=== PATIENT | female | born 1965 | race African-American/Black ===

== ENCOUNTER 2017-04-22 07:13 | Inpatient (IN) ==
[~2017-04-22 07:13] MED LIST: BENZONATATE 100 MG CAPSULE PO PRN; DEXTROSE 50% 25 GM/50 ML VIAL IV PRN; GLUCAGON 1 MG VIAL IM PRN
[2017-04-22 11:11] LABS: Basophils # 0.1 10*3/uL (0.0-0.2); Basophils % 0.8 % (0.0-0.8); Eosinophils # 0.3 10*3/uL (0.0-0.87); Eosinophils % 3.8 % (0.00-10.9); Hematocrit 37.4 VOL% (35.7-47.0); Hemoglobin 11.5 GM/DL (12.0-16.0); Immature Granulocytes % 0.4 %; Immature Granulocytes Absolute 0.03 #; Lymphocytes # 1.9 10*3/uL (1.4-4.0); Lymphocytes % 25.3 % (21.3-54.2); Mean Corpuscular HGB Conc 30.7 GM/DL (32-36); Mean Corpuscular Hemoglobin 24 PG (27-34); Mean Corpuscular Volume 77.1 FL (87-102); Mean Platelet Volume 9.7 FL (9.6-12.0); Monocytes # 0.7 10*3/uL (0.11-0.8); Monocytes % 9.1 % (1.7-12.7); Neutrophils # 4.5 10*3/uL (1.4-7.4); Neutrophils % 60.6 % (38.7-73.9); Platelet Count 360 T/CUMM (130-400); Red Blood Count 4.85 MC/CUMM (3.8-5.5); Red Cell Distribution Width 16.2 % (9.3-17.3); White Blood Count 7.4 T/CUMM (4-12)
[2017-04-22] MEDS: SODIUM CHLORIDE 0.9% 1,000 ML IV SCH (11:47)
[2017-04-22] MEDS: CHLORHEXIDINE 0.12% ORAL RINSE 60 ML BOTTLE SWISH/SPIT SCH ×2 (11:47→21:26)
[2017-04-22 11:51] LABS: Albumin 3.1 G/DL (3.4-5.0); Bilirubin,Total 0.4 MG/DL (0.2-1.0); Calcium 9.2 MG/DL (8.5-10.1); Osmolality,Calculated 275.5 MOS/KG (273-304); Potassium 4.8 MMOL/L (3.5-5.1)
[2017-04-22 12:04] LABS: ABG HCO3 28.3 MMOL/L (20-26); ABG Oxygen Saturation 97.1 % (95-100); ABG PCO2 41.7 MM HG (35-48); ABG PO2 96.9 MM HG (80-95); ABG TCO2 29.6 MMOL/L (23-27)
[2017-04-22] MEDS: CHLORHEXIDINE 4% SOLN 118 ML BOTTLE TOP SCH ×2 (16:11→22:53)
[2017-04-23] MEDS ORDERED: CEFUROXIME INJ 1,500 MG in SYRINGE 1 EACH IV ONE (05:00)
[2017-04-23] MEDS ORDERED: PAPAVERINE 60 MG/2 ML VIAL ONE (05:30)
[2017-04-23] MEDS ORDERED: VANCOMYCIN 1,000 MG VIAL ONE (05:31)
[2017-04-23] MEDS ORDERED: SUFentanil 250 MCG/5 ML AMP ONE (05:44)
[2017-04-23] MEDS ORDERED: MIDAZOLAM 10 MG/2 ML VIAL ONE (05:44)
[2017-04-23] MEDS ORDERED: NITROGLYCERIN DRIP 50 MG/250 ML BOTTLE IV ONE (05:45)
[2017-04-23] MEDS ORDERED: AMINOCAPROIC ACID 5,000 MG/20 ML VIAL IV ONE (05:45)
[2017-04-23] MEDS ORDERED: HEPARIN/NACL 0.9% 2 UNITS/ML 500 ML IV ONE (05:45)
[2017-04-23] MEDS ORDERED: FAMOTIDINE 20 MG TABLET PO ONE (06:00)
[2017-04-23] MEDS ORDERED: DIAZEPAM 5 MG TABLET PO ONE (06:00)
[2017-04-23] MEDS ORDERED: DEXTROSE 50% 25 GM/50 ML VIAL IV PRN ×2 (06:10→12:22)
[2017-04-23] MEDS ORDERED: GLUCAGON 1 MG VIAL IM PRN (06:10)
[2017-04-23] MEDS: INSULIN REGULAR 100 UNIT/ML SUBCUT SCH ×3 (06:16→15:02)
[2017-04-23] MEDS ORDERED: PHENYLEPHRINE DRIP 40 MG/250 ML PREMIX IV ONE (07:09)
[2017-04-23] MEDS ORDERED: CALCIUM CHLORIDE 1,000 MG/10 ML SYRINGE IV ONE (07:09)
[2017-04-23] MEDS ORDERED: NITROPRUSSIDE 50 MG/2 ML VIAL ONE (07:09)
[2017-04-23] MEDS ORDERED: POTASSIUM CHLORIDE RIDER 100 ML IV ONE (07:09)
[2017-04-23] MEDS ORDERED: SODIUM BICARBONATE 50 MEQ/50 ML SYRINGE IV ONE ×2 (07:11→11:31)
[2017-04-23 07:55] LABS: ABG HCO3 24.5 MMOL/L (20-26); ABG PCO2 37.5 MM HG (35-48); ABG PH 7.419 (7.35-7.45); ABG TCO2 22.1 MMOL/L (23-27); Glucose Heart Surgery 358 MG/DL (74-106); Hematocrit Heart Surgery 30.8 PERCENT (37-47); Ionized Calcium Arterial 1.17 MMOL/L (1.21-1.46); PCO2 Patient Temp Arterial 37.5 MMHG; PH Patient Temp Arterial 7.419; Patient Temperature 37 CELCIUS; Potassium Heart/CVR 3.9 MMOL/L (3.5-5.1); Sodium Heart/CVR 138 MMOL/L (135-145)
[2017-04-23 08:00] LABS: Apearance,Urine CLEAR (Clear); Bilirubin,Urine Negative (Negative); Blood, Urine Small mg/dL (Negative); Glucose,Urine (UA) >=500 mg/dL (Negative); Ketones,Urine Negative (Negative); Nitrite,Urine Negative (Negative); Protein,Urine 30 MG/DL; RBC,Urine 5 /HPF (0-4); Squamous Epithelial Cell,Urine Occasional /HPF (0-10); Urine Color Straw (Yellow); Urine Specific Gravity 1.014 (1.001-1.035); Urine Urobilinogen < 2.0 EU/DL (0.2-1.0); WBC,Urine <1 /HPF (0-6)
[2017-04-23] MEDS ORDERED: INSULIN REGULAR DRIP 100 ML IV ONE (08:52)
[2017-04-23] MEDS ORDERED: LOSARTAN 50 MG TABLET PO SCH (09:00)
[2017-04-23] MEDS ORDERED: PANTOPRAZOLE 40 MG TABLET PO SCH (09:00)
[2017-04-23] MEDS ORDERED: ATORVASTATIN 40 MG TABLET PO SCH (09:00)
[2017-04-23] MEDS ORDERED: METOCLOPRAMIDE 10 MG TABLET PO SCH (09:00)
[2017-04-23] MEDS ORDERED: ASPIRIN EC 81 MG TABLET PO SCH (09:00)
[2017-04-23] MEDS ORDERED: POTASSIUM CHLORIDE 20 MEQ TABLET PO SCH (09:00)
[2017-04-23] MEDS: CHLORHEXIDINE 0.12% ORAL RINSE 60 ML BOTTLE SWISH/SPIT SCH ×2 (09:10→20:24)
[2017-04-23] MEDS: CHLORHEXIDINE 4% SOLN 118 ML BOTTLE TOP SCH (09:10)
[2017-04-23 10:04] LABS: Hemoglobin Heart Surgery 7.5 G/DL (12.0-16.0); PCO2 Patient Temp Venous 29.5 MM HG; PH Patient Temp Venous 7.552; PO2 Patient Temp Venous 31.9 MM HG; Potassium Heart/CVR 3.8 MMOL/L (3.5-5.1); VBG Base Excess 2.9 MEQ/L (0-4); VBG HCO3 25.8 MEQ/L (24-28); VBG Oxygen Saturation 77.8 %; VBG PCO2 32.2 MMHG (41-51); VBG PH 7.521; VBG PO2 36.7 MMHG (17-40)
[2017-04-23 10:31] LABS: Hemoglobin Heart Surgery 7.9 G/DL (12.0-16.0); PCO2 Patient Temp Venous 27.5 MM HG; PH Patient Temp Venous 7.564; PO2 Patient Temp Venous 37.9 MM HG; Potassium Heart/CVR 3.2 MMOL/L (3.5-5.1); VBG Base Excess 2.1 MEQ/L (0-4); VBG HCO3 25.2 MEQ/L (24-28); VBG Oxygen Saturation 87.3 %; VBG PCO2 32.8 MMHG (41-51); VBG PH 7.503; VBG PO2 50.2 MMHG (17-40)
[2017-04-23 10:57] LABS: PCO2 Patient Temp Venous 32.3 MM HG; PH Patient Temp Venous 7.519; PO2 Patient Temp Venous 36.2 MM HG; Potassium Heart/CVR 3.9 MMOL/L (3.5-5.1); VBG Base Excess 2.8 MEQ/L (0-4); VBG HCO3 25.7 MEQ/L (24-28); VBG Oxygen Saturation 77.6 %; VBG PCO2 32.3 MMHG (41-51); VBG PH 7.519; VBG PO2 36.2 MMHG (17-40)
[2017-04-23 11:20] LABS: ABG Base Excess 1.4 MMOL/L (-2.5-2.5); ABG HCO3 24.5 MMOL/L (20-26); ABG Oxygen Saturation 98.3 % (95-100); ABG PCO2 33.2 MM HG (35-48); ABG PH 7.486 (7.35-7.45); ABG PO2 144.2 MM HG (80-95); ABG TCO2 25.5 MMOL/L (23-27); Glucose Heart Surgery 142 MG/DL (74-106); Hemoglobin Heart Surgery 10.3 G/DL (12.0-16.0); Ionized Calcium Arterial 1.21 MMOL/L (1.21-1.46); PCO2 Patient Temp Arterial 33.2 MMHG; PH Patient Temp Arterial 7.486; PO2 Patient Temp Arterial 144.2 MM HG; Patient Temperature 37 CELCIUS; Potassium Heart/CVR 3.2 MMOL/L (3.5-5.1); Sodium Heart/CVR 138 MMOL/L (135-145)
[2017-04-23] MEDS ORDERED: ALBUMIN 25% 25 GM/100 ML VIAL IV ONE (11:31)
[2017-04-23] MEDS ORDERED: HEPARIN 10,000 UNIT/10 ML VIAL ONE (11:31)
[2017-04-23] MEDS ORDERED: MANNITOL 12.5 GM/50 ML VIAL IV ONE (11:31)
[2017-04-23] MEDS ORDERED: MAGNESIUM SULFATE 1 GM/2 ML VIAL ONE (11:31)
[2017-04-23] MEDS ORDERED: DEXTROSE 5% KCL 20 MEQ 20 MEQ/1,000 ML BAG IV ONE (11:31)
[2017-04-23] MEDS ORDERED: PROTAMINE SULFATE 250 MG/25 ML VIAL IV ONE (11:31)
[2017-04-23] MEDS ORDERED: methylPREDNISolone SOD SUC 1,000 MG/8 ML VIAL ONE (11:31)
[2017-04-23] MEDS ORDERED: POTASSIUM CHLORIDE 20 MEQ/10 ML VIAL ONE (11:32)
[2017-04-23] MEDS ORDERED: FUROSEMIDE 20 MG/2 ML VIAL ONE (11:32)
[2017-04-23] MEDS: SODIUM CHLORIDE 0.45% 1,000 ML IV SCH ×2 (12:10)
[2017-04-23] MEDS ORDERED: CALCIUM CHLORIDE 1,000 MG/10 ML VIAL IV ONE (12:18)
[2017-04-23] MEDS ORDERED: MINERAL OIL/PETROLATUM OPH OINT 3.5 GM TUBE ONE (12:18)
[2017-04-23] MEDS ORDERED: DEXAMETHASONE 10 MG/1 ML VIAL ONE (12:18)
[2017-04-23] MEDS ORDERED: ONDANSETRON 4 MG/2 ML VIAL ONE (12:19)
[2017-04-23] MEDS ORDERED: KETOROLAC 30 MG/1 ML VIAL ONE (12:19)
[2017-04-23] MEDS ORDERED: FAMOTIDINE 20 MG/2 ML VIAL IV ONE (12:19)
[2017-04-23] MEDS ORDERED: ESMOLOL 100 MG/10 ML VIAL IV ONE (12:19)
[2017-04-23] MEDS ORDERED: ePHEDrine 50 MG/ML AMP ONE (12:20)
[2017-04-23] MEDS ORDERED: SEVOFLURANE 1 UNIT/15 MINUTE INH ONE (12:20)
[2017-04-23] MEDS ORDERED: SODIUM CHLORIDE 0.9% 500 ML IV ONE (12:21)
[2017-04-23] MEDS ORDERED: PHENYLEPHRINE 50 MG/5 ML VIAL ONE (12:21)
[2017-04-23] MEDS ORDERED: ROCURONIUM 100 MG/10 ML VIAL IV ONE (12:21)
[2017-04-23] MEDS ORDERED: LACTATED RINGERS 1,000 ML IV ONE (12:21)
[2017-04-23] MEDS ORDERED: SODIUM CHLORIDE 0.9% 2,000 ML IV ONE (12:21)
[2017-04-23] MEDS ORDERED: MORPHINE 2 MG/1 ML SYRINGE IV PRN (12:22)
[2017-04-23] MEDS ORDERED: MIDAZOLAM 10 MG/2 ML VIAL IV PRN (12:22)
[2017-04-23] MEDS ORDERED: INSULIN REGULAR 100 UNIT/ML IV PRN (12:22)
[2017-04-23] MEDS ORDERED: VECURONIUM 10 MG VIAL IV PRN ×2 (12:22)
[2017-04-23] MEDS ORDERED: MORPHINE 10 MG/1 ML VIAL IV PRN (12:22)
[2017-04-23] MEDS ORDERED: INSULIN REGULAR 100 UNIT/ML IV ONE (12:22)
[2017-04-23] MEDS ORDERED: LACTATED RINGERS 250 ML IV PRN (12:22)
[2017-04-23] MEDS ORDERED: MAGNESIUM SULF RIDER 4 GM in PREMIX 1 EACH IV PRN (12:22)
[2017-04-23] MEDS ORDERED: NITROPRUSSIDE 100 MG in DEXTROSE 5% 250 ML IV PRN (12:22)
[2017-04-23] MEDS ORDERED: MIDAZOLAM 2 MG/2 ML VIAL IV PRN (12:22)
[2017-04-23] MEDS ORDERED: CALCIUM CHLORIDE 1,000 MG/10 ML SYRINGE IV PRN (12:22)
[2017-04-23] MEDS ORDERED: MAGNESIUM SULF RIDER 2 GM in PREMIX 1 EACH IV PRN (12:22)
[2017-04-23] MEDS ORDERED: ACETAMINOPHEN 650 MG SUPP RECTAL PRN (12:22)
[2017-04-23 12:27] LABS: ABG Base Excess 2.7 MMOL/L (-2.5-2.5); ABG HCO3 24.3 MMOL/L (20-26); ABG Oxygen Saturation 98.4 % (95-100); ABG PCO2 27.5 MM HG (35-48); ABG PH 7.564 (7.35-7.45); ABG PO2 160.7 MM HG (80-95); ABG TCO2 25.1 MMOL/L (23-27); Glucose Heart Surgery 120 MG/DL (74-106); Hemoglobin Heart Surgery 10.3 G/DL (12.0-16.0); Potassium Heart/CVR 3.1 MMOL/L (3.5-5.1)
[2017-04-23] MEDS: LACTATED RINGERS 1,000 ML IV PRN ×3 (12:30→17:05)
[2017-04-23] MEDS: KETOROLAC 30 MG/1 ML VIAL IV SCH ×3 (12:30→23:53)
[2017-04-23 12:32] LABS: Basophils # 0.1 10*3/uL (0.0-0.2); Basophils % 0.4 % (0.0-0.8); Eosinophils # 0.1 10*3/uL (0.0-0.87); Eosinophils % 0.9 % (0.00-10.9); Hematocrit 31.7 VOL% (35.7-47.0); Hemoglobin 10.2 GM/DL (12.0-16.0); Immature Granulocytes % 0.8 %; Lymphocytes # 1.2 10*3/uL (1.4-4.0); Lymphocytes % 9.6 % (21.3-54.2); Mean Corpuscular HGB Conc 32.2 GM/DL (32-36); Mean Corpuscular Hemoglobin 24 PG (27-34); Mean Corpuscular Volume 74.6 FL (87-102); Mean Platelet Volume 9.7 FL (9.6-12.0); Monocytes # 0.6 10*3/uL (0.11-0.8); Monocytes % 4.8 % (1.7-12.7); Neutrophils % 83.5 % (38.7-73.9); Platelet Count 325 T/CUMM (130-400); Red Blood Count 4.25 MC/CUMM (3.8-5.5); Red Cell Distribution Width 15.8 % (9.3-17.3)
[2017-04-23 12:40] LABS: INR 1.2; PT Patient Result 12.1 SECS; Partial Thromboplastin Time 29.4 SECS (0-40)
[2017-04-23 13:09] LABS: Bilirubin,Total 0.7 MG/DL (0.2-1.0); Magnesium 2.3 MG/DL (1.8-2.4); Osmolality,Calculated 283.3 MOS/KG (273-304); Potassium 3.3 MMOL/L (3.5-5.1); Total Protein 6.8 G/DL (6.4-8.3)
[2017-04-23] MEDS: POTASSIUM CHLORIDE RIDER 20 MEQ in PREMIX 1 EACH IV PRN ×4 (13:15→19:20)
[2017-04-23 13:25] LABS: CKMB % 6.1 %
[2017-04-23 13:26] LABS: Troponin I Only 2.8 NG/ML (0.00-0.045)
[2017-04-23] MEDS: NON-FORMULARY MEDICATION (Insulin Degludec [Tresiba Flextouch U-100] 50 UNIT) SQ SCH (15:02)
[2017-04-23] MEDS: SODIUM CHLORIDE 0.9% 1,000 ML IV SCH (15:03)
[2017-04-23 15:16] LABS: ABG HCO3 26.2 MMOL/L (20-26); ABG Oxygen Saturation 98.1 % (95-100); ABG PCO2 33.9 MM HG (35-48); ABG PH 7.478 (7.35-7.45); ABG TCO2 22.8 MMOL/L (23-27); Glucose Heart Surgery 90 MG/DL (74-106); Hematocrit Heart Surgery 31.2 PERCENT (37-47); Hemoglobin Heart Surgery 10.1 G/DL (12.0-16.0); Potassium Heart/CVR 3.5 MMOL/L (3.5-5.1)
[2017-04-23] MEDS: ALBUMIN 5% 12.5 GM in PREMIX 1 EACH IV PRN ×2 (15:45→16:01)
[2017-04-23] MEDS: POTASSIUM CHLORIDE RIDER 10 MEQ in PREMIX 1 EACH IV PRN ×3 (16:00→23:53)
[2017-04-23 17:56] LABS: ABG Base Excess 1.4 MMOL/L (-2.5-2.5); ABG HCO3 25.7 MMOL/L (20-26); ABG Oxygen Saturation 98.6 % (95-100); ABG PCO2 37.8 MM HG (35-48); ABG PH 7.438 (7.35-7.45); ABG TCO2 23.7 MMOL/L (23-27); Glucose Heart Surgery 100 MG/DL (74-106); Hematocrit Heart Surgery 26.1 PERCENT (37-47); Hemoglobin Heart Surgery 8.4 G/DL (12.0-16.0); Potassium Heart/CVR 3.9 MMOL/L (3.5-5.1)
[2017-04-23 20:21] LABS: ABG Base Excess -1.3 MMOL/L (-2.5-2.5); ABG HCO3 23.4 MMOL/L (20-26); ABG Oxygen Saturation 98.6 % (95-100); ABG PCO2 42.4 MM HG (35-48); ABG PH 7.363 (7.35-7.45); ABG TCO2 22.1 MMOL/L (23-27); Glucose Heart Surgery 154 MG/DL (74-106); Hematocrit Heart Surgery 29.5 PERCENT (37-47); Hemoglobin Heart Surgery 9.5 G/DL (12.0-16.0); Potassium Heart/CVR 4.5 MMOL/L (3.5-5.1)
[2017-04-23] MEDS: CEFUROXIME INJ 1,500 MG in SYRINGE 1 EACH IV SCH (20:23)
[2017-04-23 21:04] LABS: CKMB % 6.9 %
[2017-04-23 21:10] LABS: Troponin I Only 21.7 NG/ML (0.00-0.045)
[2017-04-23] MEDS: ONDANSETRON 4 MG/2 ML VIAL IV PRN (22:47)
[2017-04-23] MEDS ORDERED: FUROSEMIDE 40 MG/4 ML VIAL IV ONE (23:18)
[2017-04-23] MEDS: PHENYLEPHRINE DRIP 40 MG/250 ML PREMIX IV PRN (23:24)
[2017-04-23] MEDS: INSULIN REGULAR DRIP 100 ML IV SCH (23:37)
[2017-04-23 23:41] LABS: ABG Base Excess -5.3 MMOL/L (-2.5-2.5); ABG Oxygen Saturation 97.2 % (95-100); ABG PCO2 48.5 MM HG (35-48); ABG PH 7.263 (7.35-7.45); ABG TCO2 20.2 MMOL/L (23-27); Glucose Heart Surgery 253 MG/DL (74-106); Hematocrit Heart Surgery 31.6 PERCENT (37-47); Hemoglobin Heart Surgery 10.2 G/DL (12.0-16.0); Potassium Heart/CVR 4.5 MMOL/L (3.5-5.1)
[2017-04-24 00:48] LABS: ABG Base Excess -4.6 MMOL/L (-2.5-2.5); ABG HCO3 20.6 MMOL/L (20-26); ABG Oxygen Saturation 97.8 % (95-100); ABG PCO2 50.1 MM HG (35-48); ABG PH 7.264 (7.35-7.45); Glucose Heart Surgery 210 MG/DL (74-106); Hematocrit Heart Surgery 31.4 PERCENT (37-47); Hemoglobin Heart Surgery 10.2 G/DL (12.0-16.0); Potassium Heart/CVR 4.3 MMOL/L (3.5-5.1)
[2017-04-24] MEDS: NON-FORMULARY MEDICATION (Insulin Degludec [Tresiba Flextouch U-100] 50 UNIT) SQ SCH (03:20)
[2017-04-24 03:41] LABS: Basophils % 0.1 % (0.0-0.8); Hematocrit 31.5 VOL% (35.7-47.0); Hemoglobin 10.1 GM/DL (12.0-16.0); Immature Granulocytes % 0.5 %; Lymphocytes % 3.1 % (21.3-54.2); Mean Corpuscular HGB Conc 32.1 GM/DL (32-36); Mean Corpuscular Hemoglobin 25 PG (27-34); Mean Corpuscular Volume 77.6 FL (87-102); Mean Platelet Volume 10.7 FL (9.6-12.0); Monocytes % 7.8 % (1.7-12.7); Neutrophils % 88.5 % (38.7-73.9); Platelet Count 256 T/CUMM (130-400); Red Blood Count 4.06 MC/CUMM (3.8-5.5); Red Cell Distribution Width 16.1 % (9.3-17.3); White Blood Count 19.5 T/CUMM (4-12)
[2017-04-24 03:42] LABS: Lymphocytes # 0.6 10*3/uL (1.4-4.0); Monocytes # 1.5 10*3/uL (0.11-0.8); Neutrophils # 17.3 10*3/uL (1.4-7.4)
[2017-04-24 03:45] LABS: ABG Base Excess -0.5 MMOL/L (-2.5-2.5); ABG Oxygen Saturation 98.7 % (95-100); ABG PCO2 45.2 MM HG (35-48); ABG PH 7.354 (7.35-7.45); ABG TCO2 22.9 MMOL/L (23-27); Glucose Heart Surgery 93 MG/DL (74-106); Hematocrit Heart Surgery 31.7 PERCENT (37-47); Hemoglobin Heart Surgery 10.2 G/DL (12.0-16.0); Potassium Heart/CVR 3.8 MMOL/L (3.5-5.1)
[2017-04-24] MEDS: POTASSIUM CHLORIDE RIDER 20 MEQ in PREMIX 1 EACH IV PRN ×3 (03:50→23:39)
[2017-04-24 04:15] LABS: Alanine Aminotransferase 34 U/L (13-56); Albumin 3.7 G/DL (3.4-5.0); Alkaline Phosphatase 56 U/L (45-117); Aspartate Amino Transferase 207 U/L (0-37); Bilirubin,Direct < 0.100 MG/DL (0.0-0.20); Blood Urea Nitrogen 19 MG/DL (7-18); Calcium 8.5 MG/DL (8.5-10.1); Glucose 82 MG/DL (74-106); Osmolality,Calculated 286.8 MOS/KG (273-304); Potassium 4.6 MMOL/L (3.5-5.1); Sodium 144 MMOL/L (136-145); Total Protein 7.2 G/DL (6.4-8.3)
[2017-04-24 04:19] LABS: Lymphocytes 7 % (20-55); Segmented Neutrophils 87 % (50-85); Total Cells Counted 100
[2017-04-24 04:20] LABS: Platelet Estimate Normal
[2017-04-24] MEDS: POTASSIUM CHLORIDE RIDER 10 MEQ in PREMIX 1 EACH IV PRN (04:23)
[2017-04-24 04:27] LABS: CKMB % 7.5 %
[2017-04-24] MEDS: ONDANSETRON 4 MG/2 ML VIAL IV PRN (04:32)
[2017-04-24 04:46] LABS: Troponin I Only 34.9 NG/ML (0.00-0.045)
[2017-04-24] MEDS: LACTATED RINGERS 1,000 ML IV PRN (05:20)
[2017-04-24 06:24] LABS: ABG Base Excess -3.3 MMOL/L (-2.5-2.5); ABG HCO3 21.6 MMOL/L (20-26); ABG Oxygen Saturation 98.2 % (95-100); ABG PH 7.334 (7.35-7.45); ABG TCO2 20.5 MMOL/L (23-27); Glucose Heart Surgery 128 MG/DL (74-106); Hematocrit Heart Surgery 30.7 PERCENT (37-47); Hemoglobin Heart Surgery 9.9 G/DL (12.0-16.0); Potassium Heart/CVR 4.9 MMOL/L (3.5-5.1)
[2017-04-24] MEDS: CEFUROXIME INJ 1,500 MG in SYRINGE 1 EACH IV SCH ×2 (07:47→20:43)
[2017-04-24 08:15] LABS: ABG Base Excess -4.9 MMOL/L (-2.5-2.5); ABG HCO3 20.4 MMOL/L (20-26); ABG PCO2 48.5 MM HG (35-48); ABG PH 7.269 (7.35-7.45); ABG TCO2 20.5 MMOL/L (23-27); Glucose Heart Surgery 187 MG/DL (74-106); Hematocrit Heart Surgery 30.7 PERCENT (37-47); Hemoglobin Heart Surgery 9.9 G/DL (12.0-16.0); Potassium Heart/CVR 4.9 MMOL/L (3.5-5.1)
[2017-04-24] MEDS ORDERED: FUROSEMIDE 40 MG/4 ML VIAL IV ONE ×3 (08:38→16:46)
[2017-04-24] MEDS: CHLORHEXIDINE 0.12% ORAL RINSE 60 ML BOTTLE SWISH/SPIT SCH ×2 (09:09→20:43)
[2017-04-24] MEDS: ALBUMIN 25% 12.5 GM in PREMIX 1 EACH IV PRN ×2 (10:38→12:11)
[2017-04-24] MEDS: SODIUM CHLORIDE 0.9% 1,000 ML IV SCH (10:42)
[2017-04-24] MEDS ORDERED: AMIODARONE INJ 150 MG in DEXTROSE 5% 100 ML IV ONE (11:14)
[2017-04-24] MEDS ORDERED: AMIODARONE 450 MG/9 ML VIAL IV ONE (11:21)
[2017-04-24] MEDS ORDERED: AMIODARONE 150 MG/3 ML VIAL ONE (11:22)
[2017-04-24] MEDS ORDERED: AMIODARONE INJ 450 MG in DEXTROSE 5% 241 ML IV SCH (11:30)
[2017-04-24] MEDS: PROPOFOL 1,000 MG/100 ML BOTTLE IV SCH ×3 (11:31→22:16)
[2017-04-24 13:04] LABS: ABG Base Excess -4.3 MMOL/L (-2.5-2.5); ABG HCO3 20.8 MMOL/L (20-26); ABG Oxygen Saturation 96.1 % (95-100); ABG PCO2 43.8 MM HG (35-48); ABG PH 7.307 (7.35-7.45); ABG TCO2 20.1 MMOL/L (23-27); Glucose Heart Surgery 131 MG/DL (74-106); Hematocrit Heart Surgery 30.5 PERCENT (37-47); Hemoglobin Heart Surgery 9.9 G/DL (12.0-16.0); Potassium Heart/CVR 4.4 MMOL/L (3.5-5.1)
[2017-04-24] MEDS: SODIUM CHLORIDE 0.45% 1,000 ML IV SCH ×2 (13:23→13:24)
[2017-04-24 13:56] LABS: CKMB % 6.7 %
[2017-04-24 13:58] LABS: Troponin I Only 45.6 NG/ML (0.00-0.045)
[2017-04-24 14:57] LABS: ABG Base Excess -4.1 MMOL/L (-2.5-2.5); ABG HCO3 21.7 MMOL/L (20-26); ABG Oxygen Saturation 97.3 % (95-100); ABG PCO2 42.7 MM HG (35-48); ABG PH 7.324 (7.35-7.45); ABG PO2 112.6 MM HG (80-95); Glucose Heart Surgery 90 MG/DL (74-106); Hemoglobin Heart Surgery 10.1 G/DL (12.0-16.0); Potassium Heart/CVR 4.5 MMOL/L (3.5-5.1)
[2017-04-24] MEDS ORDERED: DOBUTamine 500 MG/250 ML PREMIX IV SCH (16:00)
[2017-04-24] MEDS: INSULIN REGULAR DRIP 100 ML IV SCH ×2 (16:04→20:22)
[2017-04-24 16:17] LABS: ABG Base Excess -4.9 MMOL/L (-2.5-2.5); ABG HCO3 20.9 MMOL/L (20-26); ABG Oxygen Saturation 95.1 % (95-100); ABG PCO2 41.6 MM HG (35-48); ABG PH 7.319 (7.35-7.45); ABG PO2 85.3 MM HG (80-95); ABG TCO2 22.2 MMOL/L (23-27); Glucose Heart Surgery 129 MG/DL (74-106); Potassium Heart/CVR 4.6 MMOL/L (3.5-5.1)
[2017-04-24] MEDS ORDERED: SODIUM BICARBONATE 50 MEQ/50 ML SYRINGE IV ONE (16:45)
[2017-04-24 16:54] LABS: VBG HCO3 23.5 MEQ/L (24-28); VBG Oxygen Saturation 37.6 %; VBG PCO2 49.5 MMHG (41-51); VBG PH 7.295; VBG PO2 22.5 MMHG (17-40)
[2017-04-24 16:55] LABS: VBG Inspired Oxygen 37.6 PERCENT (0-100)
[2017-04-24] MEDS: INSULIN REGULAR 100 UNIT/ML SUBCUT SCH ×2 (16:59→20:05)
[2017-04-24] MEDS ORDERED: MIDAZOLAM 2 MG/2 ML VIAL IV ONE (17:00)
[2017-04-24] MEDS ORDERED: SUCCINYLCHOLINE 200 MG/10 ML VIAL ONE (17:21)
[2017-04-24] MEDS ORDERED: NITROGLYCERIN DRIP 50 MG/250 ML BOTTLE IV ONE (17:22)
[2017-04-24] MEDS ORDERED: methylPREDNISolone SOD SUC 125 MG/2 ML VIAL ONE (17:44)
[2017-04-24] MEDS ORDERED: methylPREDNISolone SOD SUC 125 MG/2 ML VIAL IV ONE (17:45)
[2017-04-24 18:06] LABS: ABG Base Excess -5.2 MMOL/L (-2.5-2.5); ABG HCO3 20.1 MMOL/L (20-26); ABG Oxygen Saturation 98.7 % (95-100); ABG PCO2 41.3 MM HG (35-48); ABG PH 7.309 (7.35-7.45); ABG TCO2 19.2 MMOL/L (23-27); Glucose Heart Surgery 204 MG/DL (74-106); Hemoglobin Heart Surgery 9.4 G/DL (12.0-16.0); Potassium Heart/CVR 4.2 MMOL/L (3.5-5.1)
[2017-04-24] MEDS: FUROSEMIDE INJ 100 MG in SODIUM CHLORIDE 0.9% 90 ML IV SCH ×2 (18:27→22:13)
[2017-04-24] MEDS: AMIODARONE INJ 450 MG in DEXTROSE 5% 241 ML IV SCH (19:51)
[2017-04-24] MEDS: methylPREDNISolone SOD SUC 40 MG/1 ML VIAL IV SCH (19:54)
[2017-04-24] MEDS ORDERED: NITROGLYCERIN DRIP 50 MG/250 ML BOTTLE IV SCH (20:00)
[2017-04-24] MEDS: METOPROLOL TARTRATE 25 MG TABLET PO SCH (21:06)
[2017-04-24] MEDS ORDERED: INSULIN REGULAR 100 UNIT/ML IV PRN (22:03)
[2017-04-24 22:45] LABS: ABG Base Excess -1.9 MMOL/L (-2.5-2.5); ABG HCO3 21.9 MMOL/L (20-26); ABG Oxygen Saturation 98.7 % (95-100); ABG PCO2 33.5 MM HG (35-48); ABG PH 7.433 (7.35-7.45); ABG PO2 195.2 MM HG (80-95); ABG TCO2 22.9 MMOL/L (23-27); Glucose Heart Surgery 205 MG/DL (74-106); Hemoglobin Heart Surgery 9.4 G/DL (12.0-16.0); Potassium Heart/CVR 3.2 MMOL/L (3.5-5.1)
[2017-04-25] MEDS: LACTATED RINGERS 1,000 ML IV PRN (00:24)
[2017-04-25] MEDS ORDERED: HEPARIN/NACL 0.9% 2 UNITS/ML 500 ML IV ONE (02:38)
[2017-04-25] MEDS: methylPREDNISolone SOD SUC 40 MG/1 ML VIAL IV SCH ×3 (02:48→18:35)
[2017-04-25 02:55] LABS: Basophils % 0.1 % (0.0-0.8); Hematocrit 27.2 VOL% (35.7-47.0); Hemoglobin 8.7 GM/DL (12.0-16.0); Immature Granulocytes % 0.7 %; Immature Granulocytes Absolute 0.14 #; Lymphocytes # 0.8 10*3/uL (1.4-4.0); Lymphocytes % 3.7 % (21.3-54.2); Mean Corpuscular Hemoglobin 25 PG (27-34); Mean Corpuscular Volume 77.3 FL (87-102); Mean Platelet Volume 9.9 FL (9.6-12.0); Monocytes # 1.4 10*3/uL (0.11-0.8); Neutrophils # 18.2 10*3/uL (1.4-7.4); Neutrophils % 88.5 % (38.7-73.9); Platelet Count 225 T/CUMM (130-400); Red Blood Count 3.52 MC/CUMM (3.8-5.5); Red Cell Distribution Width 16.5 % (9.3-17.3); White Blood Count 20.6 T/CUMM (4-12)
[2017-04-25 03:03] LABS: ABG Base Excess 0.9 MMOL/L (-2.5-2.5); ABG HCO3 25.3 MMOL/L (20-26); ABG Oxygen Saturation 99.3 % (95-100); ABG PCO2 33.8 MM HG (35-48); ABG PH 7.466 (7.35-7.45); ABG TCO2 22.4 MMOL/L (23-27); Glucose Heart Surgery 77 MG/DL (74-106); Hematocrit Heart Surgery 27.7 PERCENT (37-47); Hemoglobin Heart Surgery 8.9 G/DL (12.0-16.0); Potassium Heart/CVR 3.6 MMOL/L (3.5-5.1)
[2017-04-25 03:16] LABS: Lymphocytes 5 % (20-55); Segmented Neutrophils 92 % (50-85); Total Cells Counted 100
[2017-04-25 03:17] LABS: Hypochromasia 1+; Platelet Estimate Normal
[2017-04-25 03:18] LABS: Polychromasia Few
[2017-04-25] MEDS: DEXTROSE 50% 25 GM/50 ML VIAL IV PRN ×2 (03:23→03:40)
[2017-04-25] MEDS: FUROSEMIDE INJ 100 MG in SODIUM CHLORIDE 0.9% 90 ML IV SCH ×4 (03:24→21:33)
[2017-04-25 03:32] LABS: Alanine Aminotransferase 59 U/L (13-56); Albumin 3.2 G/DL (3.4-5.0); Alkaline Phosphatase 65 U/L (45-117); Aspartate Amino Transferase 157 U/L (0-37); Bilirubin,Direct < 0.100 MG/DL (0.0-0.20); Bilirubin,Total < 0.39 MG/DL (0.2-1.0); Blood Urea Nitrogen 25 MG/DL (7-18); Calcium 7.7 MG/DL (8.5-10.1); Glucose 71 MG/DL (74-106); Magnesium 2.4 MG/DL (1.8-2.4); Osmolality,Calculated 287.8 MOS/KG (273-304); Potassium 3.7 MMOL/L (3.5-5.1); Sodium 144 MMOL/L (136-145)
[2017-04-25 03:34] LABS: CKMB % 4.3 %
[2017-04-25 03:39] LABS: Troponin I Only 31.8 NG/ML (0.00-0.045)
[2017-04-25] MEDS: POTASSIUM CHLORIDE RIDER 20 MEQ in PREMIX 1 EACH IV PRN ×2 (04:11→16:54)
[2017-04-25] MEDS: POTASSIUM CHLORIDE RIDER 10 MEQ in PREMIX 1 EACH IV PRN (04:41)
[2017-04-25] MEDS: PROPOFOL 1,000 MG/100 ML BOTTLE IV SCH ×3 (05:14→16:10)
[2017-04-25] MEDS: CHLORHEXIDINE 0.12% ORAL RINSE 60 ML BOTTLE SWISH/SPIT SCH ×2 (08:00→20:47)
[2017-04-25] MEDS: DOBUTamine 500 MG/250 ML PREMIX IV SCH (08:30)
[2017-04-25] MEDS: METOPROLOL TARTRATE 25 MG TABLET PO SCH ×2 (09:32→20:46)
[2017-04-25] MEDS ORDERED: ALBUMIN 5% 12.5 GM/250 ML VIAL IV ONE (11:48)
[2017-04-25] MEDS: AMIODARONE INJ 450 MG in DEXTROSE 5% 241 ML IV SCH (11:55)
[2017-04-25] MEDS: ALBUMIN 5% 12.5 GM in PREMIX 1 EACH IV PRN ×2 (11:55→12:30)
[2017-04-25] MEDS: PHENYLEPHRINE DRIP 40 MG/250 ML PREMIX IV PRN (12:28)
[2017-04-25 16:46] LABS: ABG Base Excess 1.6 MMOL/L (-2.5-2.5); ABG HCO3 25.9 MMOL/L (20-26); ABG PCO2 38.7 MM HG (35-48); ABG PH 7.433 (7.35-7.45); ABG TCO2 23.8 MMOL/L (23-27); Glucose Heart Surgery 129 MG/DL (74-106); Hematocrit Heart Surgery 27.6 PERCENT (37-47); Hemoglobin Heart Surgery 8.9 G/DL (12.0-16.0); Potassium Heart/CVR 4.1 MMOL/L (3.5-5.1)
[2017-04-25] MEDS: SODIUM CHLORIDE 0.45% 1,000 ML IV SCH ×2 (18:38→19:21)
[2017-04-25] MEDS: INSULIN REGULAR DRIP 100 ML IV SCH (21:32)
[2017-04-26] MEDS: methylPREDNISolone SOD SUC 40 MG/1 ML VIAL IV SCH ×3 (02:34→18:15)
[2017-04-26] MEDS: AMIODARONE INJ 450 MG in DEXTROSE 5% 241 ML IV SCH (02:36)
[2017-04-26] MEDS: PROPOFOL 1,000 MG/100 ML BOTTLE IV SCH ×2 (02:50→09:00)
[2017-04-26 03:32] LABS: ABG Base Excess 3.6 MMOL/L (-2.5-2.5); ABG HCO3 27.6 MMOL/L (20-26); ABG Oxygen Saturation 98.9 % (95-100); ABG PCO2 39.6 MM HG (35-48); ABG PH 7.453 (7.35-7.45); ABG TCO2 25.3 MMOL/L (23-27); Glucose Heart Surgery 146 MG/DL (74-106); Hematocrit Heart Surgery 29.1 PERCENT (37-47); Hemoglobin Heart Surgery 9.4 G/DL (12.0-16.0); Potassium Heart/CVR 3.8 MMOL/L (3.5-5.1)
[2017-04-26 03:45] LABS: Basophils % 0.1 % (0.0-0.8); Eosinophils % 0.1 % (0.00-10.9); Hematocrit 28.9 VOL% (35.7-47.0); Hemoglobin 9.3 GM/DL (12.0-16.0); Immature Granulocytes % 0.4 %; Immature Granulocytes Absolute 0.06 #; Lymphocytes # 0.9 10*3/uL (1.4-4.0); Lymphocytes % 5.5 % (21.3-54.2); Mean Corpuscular HGB Conc 32.2 GM/DL (32-36); Mean Corpuscular Hemoglobin 25 PG (27-34); Mean Corpuscular Volume 77.1 FL (87-102); Mean Platelet Volume 11.1 FL (9.6-12.0); Monocytes # 0.3 10*3/uL (0.11-0.8); Monocytes % 1.8 % (1.7-12.7); Neutrophils # 14.6 10*3/uL (1.4-7.4); Neutrophils % 92.1 % (38.7-73.9); Platelet Count 265 T/CUMM (130-400); Red Blood Count 3.75 MC/CUMM (3.8-5.5); Red Cell Distribution Width 17.1 % (9.3-17.3); White Blood Count 15.9 T/CUMM (4-12)
[2017-04-26 04:06] LABS: Alanine Aminotransferase 55 U/L (13-56); Albumin 3.7 G/DL (3.4-5.0); Alkaline Phosphatase 68 U/L (45-117); Aspartate Amino Transferase 91 U/L (0-37); Bilirubin,Total < 0.39 MG/DL (0.2-1.0); Blood Urea Nitrogen 28 MG/DL (7-18); Calcium 7.1 MG/DL (8.5-10.1); Glucose 140 MG/DL (74-106); Magnesium 2.2 MG/DL (1.8-2.4); Osmolality,Calculated 288.3 MOS/KG (273-304); Potassium 3.8 MMOL/L (3.5-5.1); Sodium 141 MMOL/L (136-145); Total Protein 6.8 G/DL (6.4-8.3)
[2017-04-26 04:17] LABS: Anisocytosis 1+; Band Neutrophils 2 % (0-10); Lymphocytes 7 % (20-55); Poikilocytosis 1+; Polychromasia 1+; Segmented Neutrophils 89 % (50-85); Total Cells Counted 100
[2017-04-26] MEDS: FUROSEMIDE INJ 100 MG in SODIUM CHLORIDE 0.9% 90 ML IV SCH (06:09)
[2017-04-26] MEDS: POTASSIUM CHLORIDE RIDER 20 MEQ in PREMIX 1 EACH IV PRN ×4 (06:18→18:10)
[2017-04-26] MEDS: DOBUTamine 500 MG/250 ML PREMIX IV SCH (06:30)
[2017-04-26] MEDS: CHLORHEXIDINE 0.12% ORAL RINSE 60 ML BOTTLE SWISH/SPIT SCH ×2 (08:00→21:41)
[2017-04-26] MEDS: METOPROLOL TARTRATE 25 MG TABLET PO SCH (08:54)
[2017-04-26] MEDS: SODIUM CHLORIDE 0.45% 1,000 ML IV SCH ×3 (09:30→12:30)
[2017-04-26 11:02] LABS: ABG Base Excess 4.5 MMOL/L (-2.5-2.5); ABG HCO3 28.5 MMOL/L (20-26); ABG Oxygen Saturation 99.1 % (95-100); ABG PCO2 36.8 MM HG (35-48); ABG PH 7.488 (7.35-7.45); ABG TCO2 25.4 MMOL/L (23-27); Glucose Heart Surgery 137 MG/DL (74-106); Hemoglobin Heart Surgery 9.7 G/DL (12.0-16.0); Potassium Heart/CVR 4.2 MMOL/L (3.5-5.1)
[2017-04-26] MEDS: FUROSEMIDE 40 MG/4 ML VIAL IV SCH (16:20)
[2017-04-26 17:15] LABS: ABG Base Excess 5.3 MMOL/L (-2.5-2.5); ABG HCO3 27.6 MMOL/L (20-26); ABG Oxygen Saturation 98.4 % (95-100); ABG PCO2 32.4 MM HG (35-48); ABG PH 7.549 (7.35-7.45); ABG PO2 144.9 MM HG (80-95); ABG TCO2 28.6 MMOL/L (23-27); Glucose Heart Surgery 154 MG/DL (74-106); Hemoglobin Heart Surgery 10.8 G/DL (12.0-16.0); Potassium Heart/CVR 3.1 MMOL/L (3.5-5.1)
[2017-04-26] MEDS: INSULIN REGULAR DRIP 100 ML IV SCH (21:40)
[2017-04-26 22:17] LABS: ABG HCO3 28.9 MMOL/L (20-26); ABG Oxygen Saturation 98.7 % (95-100); ABG PCO2 33.1 MM HG (35-48); Glucose Heart Surgery 109 MG/DL (74-106); Potassium Heart/CVR 3.4 MMOL/L (3.5-5.1)
[2017-04-27] MEDS: FUROSEMIDE 40 MG/4 ML VIAL IV SCH ×3 (00:02→16:08)
[2017-04-27] MEDS: POTASSIUM CHLORIDE 20 MEQ/15 ML UDCUP PER TUBE PRN ×5 (00:10→16:09)
[2017-04-27] MEDS: methylPREDNISolone SOD SUC 40 MG/1 ML VIAL IV SCH (03:06)
[2017-04-27 04:38] LABS: ABG Base Excess 4.9 MMOL/L (-2.5-2.5); ABG HCO3 28.8 MMOL/L (20-26); ABG Oxygen Saturation 98.5 % (95-100); ABG PCO2 31.9 MM HG (35-48); ABG TCO2 24.5 MMOL/L (23-27); Glucose Heart Surgery 161 MG/DL (74-106); Hematocrit Heart Surgery 31.8 PERCENT (37-47); Hemoglobin Heart Surgery 10.3 G/DL (12.0-16.0); Potassium Heart/CVR 3.7 MMOL/L (3.5-5.1)
[2017-04-27] MEDS ORDERED: GLUCAGON 1 MG VIAL IM PRN (04:42)
[2017-04-27] MEDS ORDERED: DEXTROSE 50% 25 GM/50 ML VIAL IV PRN (04:42)
[2017-04-27 04:43] LABS: Basophils % 0.1 % (0.0-0.8); Hematocrit 31.8 VOL% (35.7-47.0); Hemoglobin 10.2 GM/DL (12.0-16.0); Immature Granulocytes % 0.7 %; Lymphocytes # 0.7 10*3/uL (1.4-4.0); Lymphocytes % 5.1 % (21.3-54.2); Mean Corpuscular HGB Conc 32.1 GM/DL (32-36); Mean Corpuscular Hemoglobin 25 PG (27-34); Mean Platelet Volume 10.6 FL (9.6-12.0); Monocytes # 0.8 10*3/uL (0.11-0.8); Monocytes % 5.6 % (1.7-12.7); Neutrophils # 12.7 10*3/uL (1.4-7.4); Neutrophils % 88.5 % (38.7-73.9); Platelet Count 263 T/CUMM (130-400); Red Blood Count 4.13 MC/CUMM (3.8-5.5); Red Cell Distribution Width 16.9 % (9.3-17.3); White Blood Count 14.4 T/CUMM (4-12)
[2017-04-27 05:46] LABS: Albumin 3.2 G/DL (3.4-5.0); Bilirubin,Total 0.4 MG/DL (0.2-1.0); Calcium 7.8 MG/DL (8.5-10.1); Magnesium 2.4 MG/DL (1.8-2.4); Osmolality,Calculated 309.9 MOS/KG (273-304); Potassium 3.9 MMOL/L (3.5-5.1); Total Protein 6.8 G/DL (6.4-8.3)
[2017-04-27] MEDS: INSULIN REGULAR 100 UNIT/ML SUBCUT SCH ×4 (08:03→16:23)
[2017-04-27] MEDS: CHLORHEXIDINE 0.12% ORAL RINSE 60 ML BOTTLE SWISH/SPIT SCH (08:34)
[2017-04-27] MEDS: DEXAMETHASONE 4 MG/1 ML VIAL IV SCH ×2 (08:34→14:37)
[2017-04-27] MEDS: PROPOFOL 1,000 MG/100 ML BOTTLE IV SCH (08:34)
[2017-04-27 13:07] LABS: ABG Base Excess 3.9 MMOL/L (-2.5-2.5); ABG Oxygen Saturation 97.6 % (95-100); ABG PCO2 30.8 MM HG (35-48); ABG PH 7.545 (7.35-7.45); ABG PO2 106.9 MM HG (80-95); Glucose Heart Surgery 267 MG/DL (74-106); Hemoglobin Heart Surgery 10.4 G/DL (12.0-16.0); Potassium Heart/CVR 3.6 MMOL/L (3.5-5.1)
[2017-04-27 18:46] VITALS: BP 96/30
== END 2017-04-27 19:20 | disposition hospice, home (50) | DRG 235 ==
LOC: N.TELEN 09:30 → N.CVR 04-23 09:17